=== PATIENT | female | born 1995 | race Caucasian/White ===

== ENCOUNTER 2019-03-31 11:41 | Emergency (ER) | payer OTHER ==
[~2019-03-31] VITALS: Ht 160 cm; Wt 59.6 kg
[2019-03-31 12:00] VITALS: BP 102/61
--- NOTE | 2019-03-31 12:40 | NUR ---
PT AMBULATED TO BED 09.
--- NOTE | 2019-03-31 12:50 | NUR ---
Dr. Loera evaluating pt at bedside.
--- NOTE | 2019-03-31 12:55 | NUR ---
23 y/o f presents to ER c/o bilateral lower extremity pain to thighs, hips and lower back since last night. Pain level 3/10, comes and goes. Pt denies any urinary symptoms/problems. A&O x4. Respirations even and unlabored. Pt found out she was 1 week ago. + vitamins. Awaiting to see OBGYN. Waiting for ERMD to evaluate pt. Allergies: NKA Med hx: none
--- NOTE | 2019-03-31 13:14 | NUR ---
Transfer of care and report given to ZULEMA Yan
--- NOTE | 2019-03-31 13:48 | NUR ---
REPORT RECEIVED FROM TA POOLE. PATIENT RESTING AT BEDSIDE. SHARP PAIN RATED 5/10 BLE PAIN. ALL NEEDS MET AT THIS TIME.
[2019-03-31] MEDS ORDERED: IBUPROFEN 800 MG TAB PO ONE (13:55)
[2019-03-31 14:28] VITALS: BP 99/53
--- NOTE | 2019-03-31 14:29 | NUR ---
Patient discharged with v/s stable. Written and verbal after care instructions given and explained. Patient alert, oriented and verbalized understanding of instructions. Ambulatory with steady gait. All questions addressed prior to discharge. ID band removed. Patient advised to follow up with PMD. Rx of MOTRIN, PROMETHAZINE, AZITHROMYCIN given. Patient educated on indication of medication including possible reaction and side effects. Opportunity to ask questions provided and answered.
== END 2019-03-31 14:29 | disposition home or self-care (01) ==
LOC: MED 11:41
DX: J02.8 Acute pharyngitis due to other specified organisms (principal); B96.89 Other specified bacterial agents as the cause of diseases classified elsewhere
CPT/HCPCS: 99283